=== PATIENT | male | born 1950 | race Caucasian/White ===

== ENCOUNTER → 2018-09-10 | Outpatient (CLI) | payer MEDICARE, OTHER | END | disposition home or self-care (01) | LOC: PCVCCLINIC 11:43 | PROVIDERS: ATTEND Internal Medicine | DX: R93.1 Abnormal findings on diagnostic imaging of heart and coronary circulation (principal); I25.10 Atherosclerotic heart disease of native coronary artery without angina pectoris; R06.00 Dyspnea, unspecified; E78.5 Hyperlipidemia, unspecified; I10 Essential (primary) hypertension | CPT/HCPCS: 93005; G0463 ==

== ENCOUNTER → 2018-09-26 | Outpatient (CLI) | payer MEDICARE, OTHER ==
[~2018-09-26] MED LIST: REGADENOSON 0.4 MG/5 ML DISP.SYRIN. IV ONE
--- NOTE | 2018-09-26 10:57 | PCVCIMAG ---
APPROVED REPORT Study performed: 09/26/2018 08:01:31 EXAM: Comprehensive 2D, Doppler, and color-flow Echocardiogram Patient Location: Echo lab Status: routine BSA: 2.17 HR: 63 bpmBP: 140/80 mmHg Rhythm: NSR Other Information Study Quality: Good Risk Factors: Cardiac Risk Factors: HTN, Hyperlipidemia Indications Elevated calcium score 2D Dimensions IVSd: 10.14 (7-11mm)LVOT Diam: 23.84 (18-24mm) LVDd: 34.83 mm PWd: 9.14 (7-11mm)Ascending Ao: 41.92 (22-36mm) LVDs: 27.54 (25-40mm) Left Atrium: 34.89 (27-40mm) Aortic Root: 35.54 mm LV Single Plane 4CH: 50.90 % LV Single Plane 2CH: 56.46 % Volumes Left Atrial Volume (Systole) Single Plane 4CH: 22.34 mLSingle Plane 2CH: 29.17 mL LA ESV Index: 12.00 mL/m2 Aortic Valve AoV Peak Carlos Enrique.: 1.30 m/s AO Peak Gr.: 6.80 mmHgLVOT Max P.98 mmHg LVOT Max V: 0.86 m/s KELSY Vmax: 2.95 cm2 Mitral Valve E/A Ratio: 0.5 MV Decel. Time: 311.84 ms MV E Max Carlos Enrique.: 0.53 m/s MV A Carlos Enrique.: 0.98 m/s IVRT: 138.41 ms TDI E/Lateral E': 6.63E/Medial E': 7.57 Medial E' Carlos Enrique.: 0.07 m/s Lateral E' Carlos Enrique.: 0.08 m/s Pulmonary Valve PV Peak Gr.: 1.86 mmHg Pulmonary Vein P Vein S: 0.76 m/sP Vein A: 0.31 m/s P Vein D: 0.38 m/sP Vein A Dur.: 72.7 msec P Vein S/D Ratio: 2.00 Tricuspid Valve TR Peak Carlos Enrique.: 2.33 m/s TR Peak Gr.: 21.73 mmHg Left Ventricle The left ventricle is normal size. There is normal LV segmental wall motion. There is normal left ventricular wall thickness. Left ventricular systolic function is normal. The left ventricular ejection fraction is within the normal range. LVEF is 60-65%. The left ventricular diastolic function is normal. Right Ventricle The right ventricle is normal size. The right ventricular systolic function is normal. Atria The left atrium size is normal. The right atrium size is normal. Aortic Valve The aortic valve is normal in structure. No aortic regurgitation is present. There is no aortic valvular stenosis. Mitral Valve The mitral valve is normal in structure. There is no mitral valve regurgitation noted. No evidence of mitral valve stenosis. Tricuspid Valve The tricuspid valve is normal in structure. Trace tricuspid regurgitation. Pulmonary artery pressure is 29mmHg. Pulmonic Valve The pulmonary valve is normal in structure. There is no pulmonic valvular regurgitation. Great Vessels The aortic root is normal in size. The ascending aorta is borderline dilated. IVC is normal in size and collapses >50% with inspiration. Pericardium There is no pericardial effusion. <Conclusion> The left ventricle is normal size. LVEF is 60-65%. The aortic valve is normal in structure. The mitral valve is normal in structure. The tricuspid valve is normal in structure. Trace tricuspid regurgitation. Pulmonary artery pressure is 29mmHg. The pulmonary valve is normal in structure. There is no pericardial effusion.
--- NOTE | 2018-09-27 09:37 | PCVCIMAG ---
APPROVED REPORT Imaging Protocol: Rest Tc-99m/Stress Tc-99m 1 day Study performed: 09/26/2018 08:52:22 Indication: Dyspnea, High Ca Score Patient Location: Out-Patient Stress Nurse: Glenny Hernandez RN, Ria Houser RN [place] Tech:Kaycee Napierjohanna [facility] Ht: 6 ft 1 in Wt: 204 lbs BSA: 2.17 m2 HR: 85 bpm BP: 145/75 mmHg BMI: 26.91 Rhythm: Sinus Rhythm Medical History Medical History: HTN, Hyperlipidemia, CAD Medications: Atorvastatin, Accupril, Omeprazole Allergies: No known drug allergies Cardiac Risk Factors: Age Pretest Chest Pain Characteristics: No chest pain Exercise History: Indeterminate Resting Data Rest SPECT myocardial perfusion imaging was performed in supine position 45 minutes following the intravenous injection of 10.4 mCi of Tc-99m Sestamibi. Time of rest injection: 829 Date: 09/26/2018 Administration Route: IV Administration Site: Right Wrist Pharmacologic Stress Pharmacologic stress test was performed by injecting Regadenoson 0.4 mg IV push over 10-15 seconds immediately followed by the intravenous injection of 35.2 mCi of Tc-99m Sestamibi. Time of stress injection: 949 Date: 09/26/2018 Administration Route: IV Administration Site: Right Wrist Gated Stress SPECT was performed 45 minutes after stress injection. The images were gated to evaluate regional wall motion and calculate left ventricular ejection fraction. Stress Test Details Stress Test: Pharmacologic stress was paired with low level exercise. 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 HRMax Heart Rate (APMHR): 151 bpm Resting HR: 85 bpmTarget HR (85% APMHR): 128 bpm Max HR Achieved: 122 bpm % of APMHR: 80 Recovery HR: 88 bpm BP Resting BP: 145/75 mmHg Max BP: 164/81 mmHg Recovery BP: 140/65 mmHg ECG Resting ECG: Sinus Rhythm Stress ECG: Sinus Tachycardia Arrhythmia: PAC's, PVC's Recovery ECG: Sinus Rhythm Clinical Reason for Termination: Completed protocol Stress Symptoms: Lightheaded Exercise duration: 4 min 00 sec Exercise capacity: 1.6 METs Symptoms resolved during recovery. Stress ECG Conclusion 1. adequate response to iv lexiscan 2. inadequate heart rate for ecg diagnosis Study Data Post stress, the left ventricular ejection was 66%.. SSS: 0 SRS: 0 SDS: 0 TID = 0.95. Perfusion There is a medium area of moderately reduced uptake in the mid and apical segment of the anterolateral wall which is seen on the stress images and improves on the resting images. This area thickens and moves normally and is most consistent with ischemia. Nuclear Conclusion ECG Findings: non-diagnostic Clinical Findings: negative for ischemia Nuclear Findings: positive for ischemia Exercise Capacity: not assessed Left Ventricular Function: normal 1. intermediate to high risk study based on evidence of inducible ischemia involvin antrolateral wall <Conclusion> 1. adequate response to iv lexiscan 2. inadequate heart rate for ecg diagnosis
== END | disposition home or self-care (01) ==
LOC: PCVCIMAG 08:00
PROVIDERS: ATTEND Internal Medicine
DX: R93.1 Abnormal findings on diagnostic imaging of heart and coronary circulation (principal); R06.00 Dyspnea, unspecified
CPT/HCPCS: 78452; 93017; 93306; A9500; J2785

== ENCOUNTER → 2018-10-08 | Outpatient (CLI) | payer MEDICARE, OTHER | END | disposition home or self-care (01) | LOC: PCVCCLINIC 10:19 | PROVIDERS: ATTEND Internal Medicine | DX: I10 Essential (primary) hypertension (principal); R93.1 Abnormal findings on diagnostic imaging of heart and coronary circulation; R06.09 Other forms of dyspnea | CPT/HCPCS: G0463 ==